=== PATIENT | female | born 1995 | race Caucasian/White ===

== ENCOUNTER 2016-08-19 00:35 | Emergency (ER) | payer OTHER ==
[2016-08-19] MEDS ORDERED: Ondansetron INJ* 2 MG/ML VIAL IV ONE (01:19)
[2016-08-19] MEDS ORDERED: NS 0.9% 1000 ML* 1,000 ML IV ONE (01:19)
[2016-08-19 01:49] LABS: Hematocrit 38 % (35-47); Hemoglobin 12.4 g/dl (12.0-16.0); Mean Corpuscular HGB Conc 33 g/dl (31-36); Mean Corpuscular Hemoglobin 29 pg (27-31); Mean Corpuscular Volume 87 fL (80-97); Mean Platelet Volume 9 um3 (7.4-10.4); Red Blood Count 4.35 10^6/ul (4.0-5.4); Red Cell Distribution Width 13 % (10.5-15); White Blood Count 16.4 10^3/ul (3.5-10.8)
[2016-08-19 01:57] LABS: Add Diff/Slide Review? Slide Review Added; Comments Flag Yes
[2016-08-19 02:10] LABS: ALT 13 U/L (7-52); AST 17 U/L (13-39); Albumin 4.5 g/dL (3.2-5.2); Alkaline Phosphatase 65 U/L (34-104); Anion Gap 6 mmol/L (2-11); Blood Urea Nitrogen 7 mg/dL (6-24); C Reactive Protein < 1.00 mg/L (< 5.00); CO2 Carbon Dioxide 26 mmol/L (22-32); Calcium 9.4 mg/dL (8.6-10.3); Chloride 106 mmol/L (101-111); EGFR African American 138.6 (>60); EGFR Non-African American 107.8 (>60); Globulin 2.8 g/dL (2-4); Glucose 88 mg/dL (70-100); Lipase 17 U/L (11.0-82.0); Magnesium 2.1 mg/dL (1.9-2.7); Potassium 3.8 mmol/L (3.5-5.0); Sodium 138 mmol/L (133-145); Total Protein 7.3 g/dL (6.4-8.9)
--- NOTE | 2016-08-19 02:13 | ED ---
Len Patricia Michael, scribed for Silvio Weathers MD on 08/19/16 at 0133 . Abdominal Pain/Female - HPI Summary HPI Summary: 20 y/o female comes to the ED presenting with constant diffuse abd pain that started at 1000 this morning. The pt reports that the abd pain worsened throughout the day, and currently palpation to the right abd elicits pain. The pain is not alleviated by anything. She also c/o nausea and diarrhea after dinner. She only at vegetables for dinner and notes 3-4 episodes of diarrhea. The pt denies vomiting, fevers, and dysuria. Her LNMP was a couple of weeks ago. - History of Current Complaint Chief Complaint: EDAbdPain Stated Complaint: STOMACH PAIN Time Seen by Provider: 08/19/16 01:14 Hx Obtained From: Patient, Medical Records Hx Last Menstrual Period: 02/09/16 Onset/Duration: Gradual Onset, Lasting Hours, Still Present Timing: Constant Severity Initially: Mild Severity Currently: Moderate Location: Diffuse Radiates: No Aggravating Factor(s): Other: - palpation Alleviating Factor(s): Nothing Associated Signs and Symptoms: Positive: Negative - fever. dysuria., Nausea, Diarrhea, Other: - abd pain.. Negative: Vomiting Allergies/Adverse Reactions: Allergies Allergy/AdvReac Type Severity Reaction Status Date / Time Shrimp Flavor Allergy Hives Verified 08/19/16 02:25 PMH/Surg Hx/FS Hx/Imm Hx Previously Healthy: Yes - denies PMHx Infectious Disease History: Denies: History Other Infectious Disease, Traveled Outside the [place] in Last 30 Days - Family History Known Family History: Positive: Hypertension, Diabetes Negative: Cardiac Disease - Social History Occupation: Student Lives: With Family Alcohol Use: Occasionally Substance Use Type: Reports: Marijuana Substance Use Comment - Amount & Last Used: LAST USED 02/09/16 Smoking Status (MU): Never Smoked Tobacco Review of Systems Negative: Fever Positive: Abdominal Pain, Diarrhea, Nausea. Negative: Vomiting Negative: dysuria All Other Systems Reviewed And Are Negative: Yes Physical Exam Triage Information Reviewed: Yes Vital Signs On Initial Exam: Initial Vitals Temp Pulse Resp BP Pulse Ox 98.4 F 89 18 130/93 99 08/19/16 01:21 08/19/16 01:21 08/19/16 01:21 08/19/16 01:21 08/19/16 01:21 Vital Signs Reviewed: Yes Appearance: Positive: Well-Appearing, Pain Distress - mild discomfort Skin: Positive: Warm Eyes: Positive: Normal, [place]ERT[place] ENT: Positive: Hearing grossly normal Neck: Positive: Supple Respiratory/Lung Sounds: Positive: Clear to Auscultation, Breath Sounds Present Cardiovascular: Positive: RRR Abdomen Description: Positive: No Organomegaly, Soft, Other: - mild diffuse lower abd tenderness. Negative: Distended, Guarding Bowel Sounds: Positive: Present Musculoskeletal: Positive: Strength/ROM Intact Neurological: Positive: Sensory/Motor Intact, Alert, Oriented to Person Place, Time Psychiatric: Positive: Affect/Mood Appropriate Diagnostics - Vital Signs Vital Signs Temp Pulse Resp BP Pulse Ox 08/19/16 01:21 98.4 F 89 18 130/93 99 - Laboratory Lab Results: Lab Results 08/19/16 08/19/16 08/19/16 Range/Units 01:35 01:35 01:35 WBC 16.4 H (3.5-10.8) 10^3/ul RBC 4.35 (4.0-5.4) 10^6/ul Hgb 12.4 (12.0-16.0) g/dl Hct 38 (35-47) % MCV 87 (80-97) fL MCH 29 (27-31) pg MCHC 33 (31-36) g/dl RDW 13 (10.5-15) % Plt Count 260 (150-450) 10^3/ul MPV 9 (7.4-10.4) um3 Neut % (Auto) 80.3 (38-83) % Lymph % (Auto) 11.8 L (25-47) % [place] % (Auto) 4.5 (1-9) % Eos % (Auto) 0.9 (0-6) % Baso % (Auto) 2.5 H (0-2) % Absolute Neuts (auto) 13.2 H (1.5-7.7) 10^3/ul Absolute Lymphs (auto) 1.9 (1.0-4.8) 10^3/ul Absolute Monos (auto) 0.7 (0-0.8) 10^3/ul Absolute Eos (auto) 0.1 (0-0.6) 10^3/ul Absolute Basos (auto) 0.4 H (0-0.2) 10^3/ul Absolute Nucleated RBC 0 10^3/ul Nucleated RBC % 0 Sodium 138 (133-145) mmol/L Potassium 3.8 (3.5-5.0) mmol/L Chloride 106 (101-111) mmol/L Carbon Dioxide 26 (22-32) mmol/L Anion Gap 6 (2-11) mmol/L BUN 7 (6-24) mg/dL Creatinine 0.70 (0.51-0.95) mg/dL Est GFR ( Amer) 138.6 (>60) Est GFR (Non-Af Amer) 107.8 (>60) BUN/Creatinine Ratio 10.0 (8-20) Glucose 88 (70-100) mg/dL Lactic Acid 0.6 (0.5-2.0) mmol/L Calcium 9.4 (8.6-10.3) mg/dL Magnesium 2.1 (1.9-2.7) mg/dL Total Bilirubin 0.30 (0.2-1.0) mg/dL AST 17 (13-39) U/L ALT 13 (7-52) U/L Alkaline Phosphatase 65 (34-104) U/L C-Reactive Protein < 1.00 (< 5.00) mg/L Total Protein 7.3 (6.4-8.9) g/dL Albumin 4.5 (3.2-5.2) g/dL Globulin 2.8 (2-4) g/dL Albumin/Globulin Ratio 1.6 (1-3) Lipase 17 (11.0-82.0) U/L Beta HCG, Quant Pending Result Diagrams: 08/19/16 01:35 08/19/16 01:35 Lab Statement: Any lab studies that have been ordered have been reviewed, and results considered in the medical decision making process. - CT CT ABD/PEL CT Interpretation: No Acute Changes CT Interpretation Completed By: Radiologist Re-Evaluation - Re-Evaluation First Eval Change: Improved Abdominal Pain Fem Course/Dx - Diagnoses Provider Diagnoses: Abdominal pain Discharge - Discharge Plan Condition: Stable Disposition: HOME Patient Education Materials: Abdominal Pain (ED) Referrals: [facility] [place] [Primary Care Provider] - Additional Instructions: Please follow up with [facility] as needed, and if your symptoms worsen please return to the ED. The documentation as recorded by the scribeLen Michael accurately reflects the service I personally performed and the decisions made by me, Silvio Weathers MD.
[2016-08-19 02:45] LABS: Urine Bilirubin Negative (Negative); Urine Glucose Negative (Negative); Urine Nitrite Negative (Negative)
[2016-08-19] MEDS ORDERED: Iohexol 300* (CONTRAST) 10 ML SDV IV ONE (03:41)
[2016-08-19 05:15] VITALS: BP 102/71
--- NOTE | 2016-08-19 08:08 | RAD ---
INDICATION: Lower abdominal pain. Nausea. Clinical concern for appendicitis. COMPARISON: None. TECHNIQUE: Multidetector CT images were obtained from the lung bases to the ischial tuberosities with 72 mL Omnipaque 300 IV and oral contrast. Multiplanar reformation. REPORT: Unremarkable visualized inferior thorax. The liver, gallbladder, pancreas, and spleen are unremarkable. Negative for CT abnormality of the upper GI or small bowel. 5 mm diameter appendix visualized overlying the RIGHT psoas muscle and groove between the psoas and RIGHT common iliac vein. The appendix is best visualized on sagittal reformatted images 36-45 directly anterior to the psoas muscle. No immediate periappendiceal inflammatory change evident. Oral contrast extends to the splenic flexure. No CT abnormality of the colon. Moderately large volume of stool present in the colon. Negative for rectal distention with stool. Physiologic small volume of free fluid in the cul-de-sac and caudal aspect of the RIGHT paracolic gutter inferior to the cecum. Negative for free air or hernias. Normal adrenal glands. Unremarkable kidneys with symmetric nephrograms and pyelograms. Unremarkable ureters and distended urinary bladder as well as the anteverted uterus and adnexal regions. Negative for lymphadenopathy. Unremarkable dominant retroperitoneal vasculature. Normal variant circumaortic LEFT renal vein. Negative for suspicious osseous lesions. IMPRESSION: 1. Normal appendix documented. 2. Physiologic small volume of free fluid primarily at the cul-de-sac with an additional small volume at the caudal aspect of the RIGHT paracolic gutter. No visualized ovarian or adnexal region lesions evident.
== END 2016-08-19 05:13 | disposition home or self-care (01) ==
LOC: ED 00:35
DX: R10.9 Unspecified abdominal pain (principal); R11.0 Nausea; R19.7 Diarrhea, unspecified
CPT/HCPCS: 36415; 74177; 80053; 81003; 83605; 83690; 83735; 84702; 85025; 86140; 96374; 99282; J2405; Q9967